=== PATIENT | female | born 2000 | race Caucasian/White ===

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

== ENCOUNTER 2022-03-11 08:10 | Emergency (ER) | payer MEDICAID ==
[2022-03-11] MEDS ORDERED: Ondansetron 4 MG/2 ML SDV IVPUSH ONE (20:45)
[2022-03-11] MEDS ORDERED: HYDROmorphone 1 MG/ML Syringe IV ONE (20:45)
[2022-03-11] MEDS ORDERED: fentaNYL 100 MCG/2 ML SDV IVPUSH ONE (21:10)
[2022-03-11] MEDS ORDERED: Iopamidol 612 MG/ML 100 ML Bottle IVPUSH ONE (21:45)
[2022-03-11] MEDS ORDERED: GI Cocktail Oral Solution 30 ML PO ONE (22:35)
[2022-03-11] MEDS ORDERED: Haloperidol Lactate 5 MG/ML SDV IM ONE (23:15)
[2022-03-11] MEDS ORDERED: Metoclopramide 10 MG/2 ML SDV IVPUSH ONE (23:15)
[2022-04-04 13:36] LABS: ANION GAP 13.9 mEq/L (7-13); CHLORIDE,CL 103 mmol/L (98-107); ESTIMATED GFR 100 mL/min (>=60); SODIUM,NA 140 mmol/L (136-145)
== END 2022-03-12 | disposition home or self-care (01) ==
LOC: DL.ED 08:10
DX: K52.9 Noninfective gastroenteritis and colitis, unspecified (principal); N83.202 Unspecified ovarian cyst, left side; K31.84 Gastroparesis; I10 Essential (primary) hypertension
CPT/HCPCS: 36415; 74177; 80053; 80307; 81001; 82150; 83605; 83690; 83735; 84145; 84703; 85025; 86140; 96361; 96372; 96374; 96375; 99284-25; A9270-GY; J1170; J1630; J2405; J2765; J3010